=== PATIENT | male | born 1935 | race Caucasian/White ===

== ENCOUNTER 2017-05-03 10:03 | Day surgery (SDC) | payer MEDICARE, OTHER ==
[2017-05-01 09:29] VITALS: BMI 24.9
[~2017-05-03 10:03] MED LIST: DEXAMETHASONE SOD PHOSPHATE 10 MG/ML 1 ML VIAL IV ONE; FAMOTIDINE 20 MG/2 ML VIAL IV ONE; HYDROmorphone 1 MG/ML 1 ML SYRINGE IVP PRN; LACTATED RINGERS 1,000 ML IV SCH; ONDANSETRON 4 MG/2 ML VIAL IVP ONE; Pre Op ABX Message 1 EACH MISC MISCELLANE ONE
[2017-05-03 10:35] VITALS: RESP 16; TEMP 97.3
[2017-05-03] MEDS ORDERED: LIDOCAINE 1% 20 ML VIAL (10MG/ML) FOR IV START INTRADERMA ONE (10:35)
[2017-05-03] MEDS ORDERED: DEXAMETHASONE SOD PHOSPHATE 10 MG/ML 1 ML VIAL IV ONE (10:42)
[2017-05-03] MEDS ORDERED: ONDANSETRON 4 MG/2 ML VIAL IVP ONE (10:44)
[2017-05-03] MEDS ORDERED: LIDOCAINE 1% INJ 10MG/ML (20 ML MDV) ONE (11:35)
[2017-05-03] MEDS ORDERED: fentaNYL (PF) 50 MCG/ML 2 ML AMP ONE (11:35)
[2017-05-03] MEDS ORDERED: PROPOFOL 10 MG/ML 20 ML VIAL IV ONE (11:35)
[2017-05-03] MEDS ORDERED: MIDAZOLAM 2 MG/2 ML VIAL ONE (11:35)
[2017-05-03] MEDS ORDERED: LIDOCAINE 1%-EPI 1:100,000 20 ML VIAL SQ ONE ×2 (11:58)
[2017-05-03] MEDS ORDERED: BACITRACIN OINT 1 EACH PACKET TOPICAL ONE (12:36)
--- NOTE | 2017-05-03 12:40 | P.OP ---
Date of Procedure: 05/03/17 Preoperative Diagnosis: Basal cell carcinoma right yarsanism Postoperative Diagnosis: Same Procedure(s) Performed: Excision right yarsanism basal cell carcinoma 2.2 x 1.7 cm Local flap reconstruction right yarsanism defect 2.2 x 1.7 cm primary defect and 2.2 x 1.9 cm secondary defect Implants: Anesthesia: MAC Surgeon: Sarath Baeza Estimated Blood Loss (ml): 1 Pathology: other (Right yarsanism) Condition: stable Disposition: PACU Indications for Procedure: This is an 81-year-old white male who has history of basal cell carcinoma right yarsanism from a shave excision biopsy and did not have this removed immediately as he went to [place] for the winter but still is left with a nodular skin lesion right yarsanism Operative Findings: [place] nodular skin lesion right yarsanism with negative frozen section margins- final pathology pending Description of Procedure: The patient was brought in the operative suite and placed in a supine position. The patient underwent induction of IV sedation after appropriate monitors were placed by the document management analyst. The patient was prepped and draped in usual aseptic fashion. 1% lidocaine with 1-100,000 epinephrine was infused subcutaneously and field block fashion. This was left to work for 7 minutes vasoconstrictive effect. The lesion was then excised grossly entirely down to the subcutaneous fat layer. The specimen was sent for frozen section and was noted to have negative margins. The wound edges were then undermined and hemostasis gained with electrocautery. Due to the size of the defect and location was elected to rotate a rhomboid flap inferiorly into the defect and therefore this flaps was raised in the exact same tissue plane and rotated and advanced into position. The primary and secondary defect were then closed with inverted interrupted 5-0 Vicryl suture skin closed with running locking and simple interrupted 5-0 Prolene suture. Bacitracin ointment and a sterile dressing were placed. The patient was allowed to emerge from anesthesia and tolerated well was transferred to postop recovery area in satisfactory condition awake and alert and oriented.
[2017-05-03 13:12] VITALS: BP 132/65; PULSE 79
== END 2017-05-03 13:34 | disposition home or self-care (01) ==
LOC: OR 10:03
PROVIDERS: ATTEND Otolaryngology
DX: C44.319 Basal cell carcinoma of skin of other parts of face (principal); L57.8 Other skin changes due to chronic exposure to nonionizing radiation; I10 Essential (primary) hypertension; E78.5 Hyperlipidemia, unspecified; I48.91 Unspecified atrial fibrillation; Z79.01 Long term (current) use of anticoagulants; Z79.899 Other long term (current) drug therapy; Z87.891 Personal history of nicotine dependence
CPT/HCPCS: 88305; 88331; 14040; J2250; J1100; J2405; J2001; J3010; J2704

== ENCOUNTER → 2019-09-17 | Outpatient (CLI) | payer MEDICARE ==
--- NOTE | 2019-09-17 09:25 | XR ---
EXAMINATION TYPE: XR chest 2V DATE OF EXAM: 09/17/2019 COMPARISON: NONE HISTORY: History of prostate cancer. TECHNIQUE: Frontal and lateral views of the chest are obtained. FINDINGS: There is no focal air space opacity, pleural effusion, or pneumothorax seen. Slight eventr ation of the right hemidiaphragm and flattening of the diaphragms on the lateral view indicative of C OPD. The cardiac silhouette size is within normal limits. Old healed right rib fractures are seen lat erally. Mild diffuse osseous demineralization. Mild multilevel degenerative changes of the spine. Art hropathy of the shoulders is seen, right greater than left. IMPRESSION: No acute cardiopulmonary process. Note old right rib fractures laterally for correlation with the pending nuclear medicine bone scan.
--- NOTE | 2019-09-17 11:16 | CT ---
EXAMINATION TYPE: CT abdomen pelvis w con DATE OF EXAM: 09/17/2019 COMPARISON: NONE HISTORY: 84-year-old male Prostate Cancer TECHNIQUE: Contiguous axial scanning of the abdomen and pelvis following administration of 100 ml Iso sanam 300 IV contrast. Delayed images through the kidneys and coronal/sagittal reconstructions perform ed. CT DLP: 877 mGycm Automated exposure control for dose reduction was used. FINDINGS: Heart upper limits of normal in size without pericardial effusion. Lung bases clear without pleural e ffusion. Small hiatal hernia. No focal liver lesion or biliary ductal dilatation. Portal venous system is patent. Gallbladder, adrenal glands, spleen, and pancreas appear within normal limits. A few scattered subcentimeter hypodensities within both kidneys too small for accurate CT characteriz ation, likely tiny cysts. 3.5 cm dominant cyst lateral left kidney. No dilated small bowel, free fluid, or free air. Normal appendix. Moderate stool burden. No pericolonic inflammatory change. At least moderate atherosclerotic calcifications at the origin of the bilateral renal arteries. No mesenteric or retroperitoneal lymphadenopathy. 2 areas of nodularity along the deep inguinal ring on the left measure 1.4 cm each. Otherwise, no pel efrain lymphadenopathy or abnormal fluid collection. Tiny inguinal hernia on the right. Short loop of no nobstructed small bowel just barely bulges into the hernia. Prostate gland is very heterogeneous and mildly enlarged at 4.3 cm wide. Rounded soft tissue prominen ce along the right lateral aspect measures 1.9 cm. Bones: Degenerative changes at the hips. Osteopenia. Degenerated dextroconvex curvature of the lumbar spine. Retrolisthesis at L2-L3 at a site of degenerative interbody ankylosis. IMPRESSION: 1. HETEROGENEOUS PROSTATE GLAND SUGGESTS UNDERLYING BPH AND/OR KNOWN PROSTATE CANCER. 2. 2 AREAS OF NODULARITY ALONG THE DEEP INGUINAL RING ON THE LEFT MEASURE 1.4 CM EACH. FINDINGS COULD REPRESENT SOME TYPE OF CHRONIC POSTINFLAMMATORY SEQUELA. MILDLY ENLARGED LYMPH NODES DIFFICULT TO EN TIRELY EXCLUDE. CORRELATE WITH PSA VALUES AND SHORT-TERM INTERVAL FOLLOW-UP INDICATED. 3. OTHERWISE, NO METASTATIC DISEASE SEEN WITHIN THE ABDOMEN OR PELVIS. 4. SMALL HIATAL HERNIA. TINY RIGHT INGUINAL HERNIA.
--- NOTE | 2019-09-17 13:58 | NM ---
EXAMINATION TYPE: NM bone scan whole body DATE OF EXAM: 09/17/2019 COMPARISON: CT abdomen pelvis of the same date and chest x-ray of the same date HISTORY: Prostate cancer Delayed whole-body scanning was performed following the injection of 22.4 mCi Tc 99m MDP. Images acq uired 3.5 hours post injection. FINDINGS: There is asymmetric uptake of the sternoclavicular joints, right greater than left however this findi ng is likely degenerative. Degenerative changes are seen in the large joints of the axial skeleton wi th photopenic defects of the knees and more focal radiotracer uptake of the right lateral femoral con dyle. Focal radiotracer uptake is seen of the left lateral aspect of the L4 vertebral body and of the L5 ve rtebral body as well as of the left lateral aspect of the upper cervical spine and right lateral aspe ct of the lower cervical spine. No convincing CT correlate for the lumbar spine findings with multile ana facet arthropathy seen and intervertebral disc space narrowing as well as malalignment. Degenerat annette changes likely account for these findings. Physiologic excretion into the urinary bladder is seen. IMPRESSION: 1. Focal abnormal radiotracer uptake at 2 sites in the cervical spine. CT of the cervical spine is re commended to exclude sclerotic focus. 2. Focal uptake of L4 and L5 are seen however no correlate is present on the of the same date and adv anced facet arthropathy likely accounts for these findings. 3. Degenerative changes of the axial skeleton with slightly focal abnormal radiotracer uptake of the right lateral femoral condyle that is nonspecific.
== END | disposition home or self-care (01) ==
LOC: RADCTMAIN 08:01
PROVIDERS: ATTEND Urology
DX: C61 Malignant neoplasm of prostate (principal); K44.9 Diaphragmatic hernia without obstruction or gangrene; R19.09 Other intra-abdominal and pelvic swelling, mass and lump
CPT/HCPCS: 82565; 84520; 71046; 74177; 36415; 78306; A9503; Q9967

== ENCOUNTER → 2020-08-06 | Outpatient (CLI) | payer MEDICARE ==
--- NOTE | 2020-08-06 10:05 | CT ---
EXAMINATION TYPE: CT sacrum wo con DATE OF EXAM: 08/06/2020 COMPARISON: None HISTORY: lower back/sacrum pain CT DLP: 382.6 mGycm Automated exposure control for dose reduction was used. FINDINGS: Prostate is seen with enlargement and metallic particles likely post therapeutic. There is mild thick ening of the bladder wall compatible with mild chronic cystitis. No free fluid within the visualized pelvis. There is diffuse osteopenia and degenerative changes spine. There are fractures involving the left tr ansverse process of L3, L4 and L5 as well as L5 on the right. There are insufficiency fractures invol ving the sacrum bilaterally. Report called to referring clinician. Degenerative changes lower lumbar spine with probable canal stenosis. Atherosclerotic change aorta. IMPRESSION: 1. There are bilateral insufficiency fractures of the sacrum. MRI could be obtained to exclude pathol ogic fracture. 2. There are transverse process fractures of L3, L4 and L5 on the left. Transverse process fracture o f L5 on the right. 3. Diffuse osteopenia with which could be on the basis of chronic osteopenia or osteoporosis correlat e clinically to exclude history of malignancy 4. Multilevel degenerative disc disease and facet arthropathy with suspected canal stenosis.
== END | disposition home or self-care (01) ==
LOC: RADCTMAIN 07:57
PROVIDERS: ATTEND Physical Medicine & Rehabilitation
DX: S32.10XA Unspecified fracture of sacrum, initial encounter for closed fracture (principal); M85.88 Other specified disorders of bone density and structure, other site; M47.818 Spondylosis without myelopathy or radiculopathy, sacral and sacrococcygeal region; M53.3 Sacrococcygeal disorders, not elsewhere classified
CPT/HCPCS: 72192

== ENCOUNTER 2020-08-20 18:12 | Emergency (ER) | payer MEDICARE ==
[2020-08-20 18:25] VITALS: BP 124/77; PULSE 74; RESP 16; TEMP 97.9
[2020-08-20] MEDS ORDERED: GELATIN SPONGE,ABSORB (SMALL) 1 EACH SPONGE TOPICAL STA (18:33)
[2020-08-20] MEDS ORDERED: DIPH,PERTUS(ACELL)TETVAC-LF 0.5 ML VIAL IM ONE (18:49)
--- NOTE | 2020-08-20 19:00 | ED ---
Wound/Laceration HPI - General Chief Complaint: Wound/Laceration Stated Complaint: right finger laceration Time Seen by Provider: 08/20/20 18:33 Source: patient Mode of arrival: ambulatory Limitations: no limitations - History of Present Illness Initial Comments: Patient is a 84-year-old male presenting to the emergency department with a chief complaint of a laceration. Patient states he accidentally lacerated the distal end of his right thumb. Patient states he is on Coumadin and could not get the bleeding under control. States the laceration is very minimal and superficial. Denies any numbness or tingling or pain. Not aware of tetanus status. - Related Data Home Medications Medication Instructions Recorded Confirmed Aspirin [Adult Low Dose Aspirin EC] 81 mg PO HS 06/02/16 05/03/17 Atorvastatin [Lipitor] 20 mg PO HS 06/02/16 05/03/17 Losartan [Cozaar] 50 mg PO HS 06/02/16 05/03/17 Multivit-Min/FA/Lycopen/Lutein 1 tab PO DAILY 06/02/16 05/03/17 [Centrum Silver Tablet] Omeprazole 20 mg PO MOWEFR 06/02/16 05/03/17 Warfarin [Coumadin] 5 mg PO SUTUTHSA 06/02/16 05/03/17 Warfarin [Coumadin] 7.5 mg PO MOWEFR 06/02/16 05/03/17 carvediloL [Coreg] 6.25 mg PO BID 06/02/16 05/03/17 Allergies Allergy/AdvReac Type Severity Reaction Status Date / Time No Known Allergies Allergy Verified 08/20/20 18:24 Review of Systems ROS Statement: Those systems with pertinent positive or pertinent negative responses have been documented in the HPI. ROS Other: All systems not noted in ROS Statement are negative. Past Medical History Past Medical History: Atrial Fibrillation, GERD/Reflux, Hyperlipidemia, Hypertension, Osteoarthritis (OA) Additional Past Medical History / Comment(s): cataracts History of Any Multi-Drug Resistant Organisms: None Reported Past Surgical History: Heart Catheterization, Joint Replacement Additional Past Surgical History / Comment(s): MARCH 2016, KIDNEY STONE REMOVAL (CYSTO?). SEP 21 LEFT KNEE REPLACED. RIGHT KNEE REPLACED 2005. lt cataract removed 06/07/16 Past Anesthesia/Blood Transfusion Reactions: No Reported Reaction Past Psychological History: No Psychological Hx Reported Past Alcohol Use History: Occasional Past Drug Use History: None Reported - Past Family History Mother Family Medical History: No Reported History General Exam Limitations: no limitations General appearance: alert, in no apparent distress Head exam: Present: atraumatic, normocephalic, normal inspection Eye exam: Present: normal appearance, PERRL, EOMI Pupils: Present: normal accommodation ENT exam: Present: normal exam, normal oropharynx, mucous membranes moist Neck exam: Present: normal inspection, full ROM Respiratory exam: Present: normal lung sounds bilaterally. Absent: respiratory distress, wheezes, rales Cardiovascular Exam: Present: regular rate, normal rhythm, normal heart sounds Extremities exam: Present: full ROM, normal capillary refill, other (+2 ulnar and radial bilaterally. Sensation intact.). Absent: normal inspection (Very superficial, small laceration about 0.5 cm. No active bleeding at this time.), tenderness Back exam: Present: normal inspection, full ROM. Absent: tenderness, CVA tenderness (R), CVA tenderness (L) Neurological exam: Present: alert, oriented X3, CN II-XII intact, normal gait Psychiatric exam: Present: normal affect, normal mood Skin exam: Present: warm, dry, intact, normal color Course Vital Signs 08/20/20 18:21 Temperature 97.9 F Pulse Rate 74 Respiratory 16 Rate Blood Pressure 124/77 O2 Sat by Pulse 98 Oximetry Medical Decision Making - Medical Decision Making Patient is an 84-year-old male presenting to emergency Department with a chief complaint of laceration. On physical examination, patient has a very small laceration that does not require any suturing. Gelfoam was applied. His tetanus was up-to-date. Tubegauz was applied. He was advised to follow with his primary care physician. Strict return parameters were thoroughly discussed the patient was understanding and agreeable. Case discussed with physician. Disposition Clinical Impression: Laceration Disposition: HOME SELF-CARE Condition: Stable Instructions (If sedation given, give patient instructions): Laceration (DC) Additional Instructions: Remove the dressing in 2 days. He can apply water to remove these Gelfoam. Return to emergency department if symptoms worsen. Is patient prescribed a controlled substance at d/c from ED?: No Referrals: Leandro García MD [Primary Care Provider] - 1-2 days Time of Disposition: 19:00
== END 2020-08-20 19:16 | disposition home or self-care (01) ==
LOC: EC 18:12
DX: S61.011A Laceration without foreign body of right thumb without damage to nail, initial encounter (principal); K21.9 Gastro-esophageal reflux disease without esophagitis; E78.5 Hyperlipidemia, unspecified; I10 Essential (primary) hypertension; I48.91 Unspecified atrial fibrillation; Z79.2 Long term (current) use of antibiotics; Z79.82 Long term (current) use of aspirin; Z79.899 Other long term (current) drug therapy; Z79.01 Long term (current) use of anticoagulants; Z96.653 Presence of artificial knee joint, bilateral; Z95.5 Presence of coronary angioplasty implant and graft; Z23 Encounter for immunization; W26.8XXA Contact with other sharp object(s), not elsewhere classified, initial encounter
CPT/HCPCS: 90471; 90715; 99282

== ENCOUNTER → 2020-08-28 | Outpatient (CLI) | payer MEDICARE ==
--- NOTE | 2020-08-28 13:51 | NM ---
EXAMINATION TYPE: NM bone scan whole body DATE OF EXAM: 08/28/2020 COMPARISON: CT abdomen and pelvis September 17, 2019. Whole body bone scan same date. Sacral CT Septemb er 2019. HISTORY: Prostate cancer. Delayed whole-body scanning was performed following the injection of 23.4 mCi Tc 99m MDP. Images acq uired 3 hours post injection. Whole body obtained in anterior-posterior projections with additional i mages of the neck thorax abdomen and pelvis in multiple projections. FINDINGS: Asymmetric radiotracer uptake right sternoclavicular joint redemonstrated. New horizontal uptake mid thoracic spine roughly T6 level could reflect acute or subacute compression type fracture, correlate clinically. Mild uptake in the lower lumbar spine and current study favor degenerative change. Marked uptake throughout the sacrum corresponds to the most recent sacral CT new from 2019 CT. Lucency from bilateral knee arthroplasty redemonstrated. Degenerative uptake bilateral shoulder regio n redemonstrated. IMPRESSION: New diffuse sacral uptake corresponds to insufficiency fracture and abnormal appearance o f sacrum on recent CT. Suspect acute or subacute compression type fracture near the T6 level, correla te clinically.
== END | disposition home or self-care (01) ==
LOC: RADNMMAIN 09:50
PROVIDERS: ATTEND Physical Medicine & Rehabilitation
DX: M43.12 Spondylolisthesis, cervical region (principal); M47.812 Spondylosis without myelopathy or radiculopathy, cervical region; M41.83 Other forms of scoliosis, cervicothoracic region; M48.02 Spinal stenosis, cervical region; M43.16 Spondylolisthesis, lumbar region; M41.26 Other idiopathic scoliosis, lumbar region; M47.817 Spondylosis without myelopathy or radiculopathy, lumbosacral region; M54.16 Radiculopathy, lumbar region; M48.062 Spinal stenosis, lumbar region with neurogenic claudication; Z79.01 Long term (current) use of anticoagulants; Z85.46 Personal history of malignant neoplasm of prostate
CPT/HCPCS: 78306; A9503

== ENCOUNTER → 2020-09-17 | Outpatient (CLI) | payer MEDICARE ==
--- NOTE | 2020-09-17 12:26 | CT ---
EXAMINATION TYPE: CT brain wo con DATE OF EXAM: 09/17/2020 COMPARISON: None HISTORY: 85-year-old male memory loss. History of TIA TECHNIQUE: Examination was done in axial plane without intravenous contrast. Coronal and sagittal r econstructions performed. CT DLP: 961.6 mGycm Automated exposure control for dose reduction was used. FINDINGS: There is no evidence of acute intracranial hemorrhage, acute ischemic changes, mass, mass-effect, or extra-axial fluid collection. There is no effacement of cerebral sulci or basal subarachnoid cister ns. There is no hydrocephalus. There is no midline shift. Napoles-white matter distinction is preserv ed. Mild patchy white matter hypodensities. Some scattered atherosclerotic calcifications within the arthur tid siphons, vertebral, and basilar arteries. Leftward nasal septal deviation. Paranasal sinuses and mastoid air cells are well pneumatized. Orbits and globes are intact. IMPRESSION: Mild patchy changes of chronic small vessel ischemic disease. No acute intracranial abnormality seen.
== END | disposition home or self-care (01) ==
LOC: RADCTMAIN 09:55
PROVIDERS: ATTEND Psychiatry & Neurology Neurology
DX: I67.82 Cerebral ischemia (principal); Z86.73 Personal history of transient ischemic attack (TIA), and cerebral infarction without residual deficits
CPT/HCPCS: 70450

== ENCOUNTER → 2021-04-06 | Outpatient (CLI) | payer MEDICARE ==
[2021-04-06 15:30] LABS: HCT 39.4 % (39.6-50.0); HGB 12.4 g/dL (13.0-17.0); MCH 29.7 pg (27.0-32.0); MCHC 31.5 g/dL (32.0-37.0); MCV 94.3 fL (80.0-97.0); Mean Platelet Volume 10.6 fL (9.5-12.2); Platelet Count 223 X 10*3/uL (140-440); RBC 4.18 X 10*6/uL (4.40-5.60); RDW 14.2 % (11.5-14.5); WBC 5.72 X 10*3/uL (4.50-10.00)
[2021-04-06 18:24] LABS: African American GFR (CKD) 78.6 (60.0-200.0); Anion Gap 9.7 mmol/L (4.00-12.00); Calcium 9.4 mg/dL (8.7-10.3); Carbon Dioxide 25.3 mmol/L (21.6-31.8); Non-African American GFR(CKD) 67.8 (60.0-200.0); Potassium 4.3 mmol/L (3.5-5.5)
== END | disposition home or self-care (01) ==
LOC: LABWHC1 10:06
PROVIDERS: ATTEND Internal Medicine Interventional Cardiology
DX: I42.9 Cardiomyopathy, unspecified (principal)
CPT/HCPCS: 36415; 80048; 85027